=== PATIENT | male | born 1985 | race Caucasian/White ===

== ENCOUNTER 2017-04-20 14:27 | Emergency (ER) | payer BC, OTHER ==
[~2017-04-20] VITALS: Ht 177.8 cm; Wt 102.1 kg
[2017-04-20 14:34] VITALS: TEMP 37; Ht 177.8 cm; Wt 102.1 kg
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
[2017-04-20 15:44] VITALS: BP 136/84; PULSE 90; O2SAT 96
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
== END 2017-04-20 15:46 | disposition home or self-care (01) ==
LOC: C.EDB 14:28 → C.EDD 15:46
DX: S46.911A Strain of unspecified muscle, fascia and tendon at shoulder and upper arm level, right arm, initial encounter (principal); W05.0XXA Fall from non-moving wheelchair, initial encounter; F32.9 Major depressive disorder, single episode, unspecified; F17.200 Nicotine dependence, unspecified, uncomplicated